=== PATIENT | female | born 2000 | race African-American/Black ===

== ENCOUNTER 2022-01-11 09:18 | Emergency (ER) | payer OTHER ==
[~2022-01-11] VITALS: Ht 170.2 cm; Wt 66.0 kg
[2022-01-11 09:21] VITALS: BP 143/82
[2022-01-11] MEDS ORDERED: BACITRACIN ZINC OINT UDPKT TOP ONE (09:30)
[2022-01-11] MEDS ORDERED: LIDOCAINE HCL/EPINEPHRINE 1%-EPI 1:100,000 20 ML VIAL INFIL ONE (09:30)
[2022-01-11] MEDS ORDERED: IBUPROFEN 600MG TABLET PO ONE (09:30)
[2022-01-11] MEDS ORDERED: TETANUS, DIPHTHERIA, PERTUSSIS VAC/PF 0.5ML (>10YR OLD) IM ONE (09:30)
[2022-01-11] MEDS ORDERED: IBUP-2029 MT (11:11)
[2022-01-11] MEDS ORDERED: BO1 TP (11:11)
== END 2022-01-11 11:00 | disposition home or self-care (01) ==
LOC: ER 09:24
DX: R51.9 Headache, unspecified (principal); E11.9 Type 2 diabetes mellitus without complications; Z88.0 Allergy status to penicillin
CPT/HCPCS: 12013; 70450; 70486; 90471; 90715; 99284; J3490; 12011